=== PATIENT | female | born 1995 | race American Indian/Alaskan Native ===

== ENCOUNTER 2017-10-11 02:08 | Emergency (ER) | payer OTHER ==
[2017-10-11 04:11] LABS: HCG Qualitative,Urine Negative (Negative)
--- NOTE | 2017-10-11 04:35 | XRay Report ---
FINAL REPORT PROCEDURE: XR KNEE 3V LT TECHNIQUE: LEFT knee radiographs, AP, lateral and oblique views. CPT 05875 HISTORY: trauma COMPARISON: No prior studies are available for comparison. FINDINGS: Fracture (s) and/or Dislocation(s): None . Alignment: Normal . Joint space(s): Normal . Soft tissues: Normal . Bone mineralization: Normal . Foreign bodies: None . IMPRESSION: Normal Examination.
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
[2017-10-11] MEDS ORDERED: NORCO 5/325 PO ONE (07:51)
[2017-10-11] MEDS ORDERED: FLEXERIL PO ONE (07:51)
[2017-10-11 08:29] VITALS: BP 120/76
== END 2017-10-11 08:28 | disposition home or self-care (01) ==
LOC: ED 02:08
DX: M25.562 Pain in left knee (principal); M79.1 Myalgia; V49.49XA Driver injured in collision with other motor vehicles in traffic accident, initial encounter; Y93.89 Activity, other specified; Y92.89 Other specified places as the place of occurrence of the external cause; Y99.8 Other external cause status
CPT/HCPCS: 81025

== ENCOUNTER 2018-11-19 10:51 | Emergency (ER) | payer SELFPAY ==
[2018-11-19] MEDS ORDERED: NACL 0.9% 1000 ML 1,000 ML IV ONE (11:25)
[2018-11-19 11:59] VITALS: BP 109/73
[2018-11-19 12:06] LABS: Alanine Aminotransferase 10 units/L (7-56); Albumin 4.1 g/dL (3.9-5); BUN/Creatinine Ratio 16; Blood Urea Nitrogen 13 mg/dL (7-17); Calcium 8.7 mg/dL (8.4-10.2); Hemolysis Index 3
[2018-11-19 12:08] LABS: Basophils % (Auto) 0.3 % (0.0-1.8); Eosinophils % (Auto) 0.1 % (0.0-4.3); Hematocrit 28.3 % (30.3-42.9); Hemoglobin 9.1 gm/dl (10.1-14.3); Lymphocytes # (Auto) 0.6 K/mm3 (1.2-5.4); Lymphocytes % (Auto) 5.9 % (13.4-35.0); Mean Corpuscular HGB Conc 32 % (30-34); Mean Corpuscular Volume 70 fl (79-97); Monocytes # (Auto) 0.7 K/mm3 (0.0-0.8); Monocytes % (Auto) 6.8 % (0.0-7.3); Platelet Count 219 K/mm3 (140-440); Red Blood Count 4.03 M/mm3 (3.65-5.03); Red Cell Distribution Width 19.9 % (13.2-15.2)
[2018-11-19 12:10] LABS: INR 1.13 (0.87-1.13)
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
[2018-11-19 12:34] LABS: Free T4 (Free Thyroxine) 1.25 ng/dL (0.76-1.46)
== END 2018-11-19 13:41 | disposition left against medical advice (07) ==
LOC: ED 10:51
DX: R00.0 Tachycardia, unspecified (principal); R00.2 Palpitations
CPT/HCPCS: 36415; 80053; 82550; 83735; 84439; 84443; 84703; 85025; 85610; 93005; 93010; J7030